=== PATIENT | female | born 1985 | race Caucasian/White ===

== ENCOUNTER 2016-11-26 | Emergency (ER) | payer OTHER ==
--- NOTE | 2016-11-26 18:21 | ED ---
General Adult HPI - General Chief complaint: Skin/Abscess/Foreign Body Stated complaint: rash Time Seen by Provider: 11/26/16 18:16 Source: patient, RN notes reviewed Mode of arrival: ambulatory Limitations: no limitations - History of Present Illness Initial comments: This is a 31-year-old female presents with rash to the chest, left shoulders and bilateral hands 1 week. Patient states she was treated with week ago with permethrin cream for scabies. Patient states the rash is not gone. Patient states the itching is worse at night. Patient denies any fever/chills, nausea/ vomiting/diarrhea. Patient states she lives at home with her children and they have also been treated. Patient denies any recent fever, chills, shortness breath, chest pain, abdominal pain, nausea/vomiting/diarrhea, back pain, numbness, tingling, hematuria, headache, or visual changes, or any other complaints. - Related Data Previous Rx's Medication Instructions Recorded Permethrin 5% Cream [Elimite] 1 applic TOPICAL ONCE #1 bottle 11/26/16 Allergies Allergy/AdvReac Type Severity Reaction Status Date / Time No Known Allergies Allergy Verified 11/26/16 18:20 Review of Systems ROS Statement: Those systems with pertinent positive or pertinent negative responses have been documented in the HPI. ROS Other: All systems not noted in ROS Statement are negative. Past Medical History Past Medical History: No Reported History Additional Past Medical History / Comment(s): PANCREATITIS History of Any Multi-Drug Resistant Organisms: None Reported Past Surgical History: Cholecystectomy, Tubal Ligation Past Psychological History: Anxiety Smoking Status: Current every day smoker Past Alcohol Use History: None Reported Past Drug Use History: None Reported General Exam - General Exam Comments Initial Comments: General: The patient is awake and alert, in no distress, and does not appear acutely ill. Neck: The neck is supple, there is no tenderness or JVD. Cardiovascular: There is a regular rate and rhythm. No murmur, rub or gallop is appreciated. Respiratory: Lungs are clear to auscultation, respirations are non-labored, breath sounds are equal. No wheezes, stridor, rales, or rhonchi. Musculoskeletal: Normal ROM, no tenderness. Strength 5/5. Sensation intact. Pulses equal bilaterally 2+. Neurological: A&O x 3. CN II-XII intact, There are no obvious motor or sensory deficits. Coordination appears grossly intact. Speech is normal. Skin: There are scattered erythematous lesions with eschar to the left shoulder , chest and bilateral hands consistent with scabies. These areas are pruritic. Skin is warm and dry. Psychiatric: Cooperative, appropriate mood & affect, normal judgment. Limitations: no limitations Course Vital Signs 11/26/16 17:48 Temperature 97.2 F L Pulse Rate 60 Respiratory 18 Rate Blood Pressure 100/71 O2 Sat by Pulse 99 Oximetry Medical Decision Making - Medical Decision Making This is a 31-year-old female who presents with persistent rash. Patient was treated for scabies one week ago. On physical exam there are scattered erythematous lesions with eschar to the left shoulder, chest and bilateral hands consistent with scabies. These areas are pruritic. Skin is warm and dry. I discussed with patient that she will receive a prescription for a repeat treatment with permethrin. I discussed proper use of permethrin and importance of washing clothes and bedding in hot water daily. I discussed return parameters. Discussed that patient should follow up with PCP in one to 2 days or return to the [facility] for any worsening symptoms or for any further concerns. Patient was receptive to this plan and patient will be discharged home. Disposition Clinical Impression: Scabies Disposition: HOME SELF-CARE Condition: Good Instructions: Scabies (ED) Additional Instructions: Apply from head to toe and leave on for 8-14 hours. Wash off in the shower. Repeat the process in 7 days. Please wash sheets and clothing in hot water every day.Please use medication as discussed. Please follow-up with family doctor in the next 2 days of symptoms have not improved. Please return to emergency room if the symptoms increase or worsen or for any other concerns. Prescriptions: Permethrin 5% Cream [Elimite] 1 applic TOPICAL ONCE #1 bottle Referrals: None,Stated [Primary Care Provider] - 1-2 days Time of Disposition: 18:25
== END 2016-11-26 18:30 | disposition home or self-care (01) ==
CPT/HCPCS: 99282

== ENCOUNTER 2018-03-04 09:39 | Emergency (ER) | payer OTHER ==
--- NOTE | 2018-03-04 10:20 | XR ---
EXAMINATION TYPE: XR lumbar spine 2 or 3V DATE OF EXAM: 03/04/2018 COMPARISON: NONE HISTORY: 32-year-old female low back pain TECHNIQUE: 3 views FINDINGS: 5 lumbar type vertebral bodies. There may be very mild disc space narrowing at L5-S1. Vertebral body heights are maintained and alignment is preserved. IMPRESSION: There may be early degenerative disc disease at L5-S1. No vertebral compression collapse or malalignm ent.
--- NOTE | 2018-03-04 10:29 | ED ---
General Adult HPI - General Chief complaint: Back Pain/Injury Stated complaint: Back pain Time Seen by Provider: 03/04/18 09:45 Source: patient, RN notes reviewed Mode of arrival: ambulatory Limitations: no limitations - History of Present Illness Initial comments: Patient 32-year-old female presented to the emergency room today with a chief complaint of increased lower back pain that began approximately 30 minutes ago. She states she was at work pushing a bed when she felt a pop in the lower back. She states she feels it radiate down to the top of her foot. Patient states it's worse with movements. States worse with ambulation. States worse when she is bearing weight on either leg. Patient denies bowel or bladder incontinence retention. Denies any saddle anesthesia. Patient states she has not taken anything for the pain. Patient denies any recent fever, chills, shortness of breath, chest pain, abdominal pain, nausea or vomiting, dysuria or hematuria, constipation or diarrhea, headaches or visual changes, or any other complaints. - Related Data Previous Rx's Medication Instructions Recorded Cyclobenzaprine [Flexeril] 10 mg PO TID #20 tab 03/04/18 Ibuprofen [Motrin] 600 mg PO Q6HR PRN #40 day 03/04/18 Allergies Allergy/AdvReac Type Severity Reaction Status Date / Time No Known Allergies Allergy Verified 03/04/18 09:46 Review of Systems ROS Statement: Those systems with pertinent positive or pertinent negative responses have been documented in the HPI. ROS Other: All systems not noted in ROS Statement are negative. Past Medical History Past Medical History: No Reported History Additional Past Medical History / Comment(s): PANCREATITIS History of Any Multi-Drug Resistant Organisms: None Reported Past Surgical History: Cholecystectomy, Tubal Ligation Past Psychological History: Anxiety Smoking Status: Former smoker Past Alcohol Use History: None Reported Past Drug Use History: None Reported General Exam Limitations: no limitations Course Vital Signs 03/04/18 09:42 Temperature 98.0 F Pulse Rate 85 Respiratory 20 Rate Blood Pressure 114/67 O2 Sat by Pulse 98 Oximetry Medical Decision Making - Medical Decision Making Patient's x-ray reviewed does show some degenerative changes at L5-S1. No other acute abnormalities X-rays. Results were discussed with patient. Patient did not want any medications here the emergency room. She is agreeable for prescription of ibuprofen and muscle relaxant. Patient advised that muscle relaxer may make her drowsy. Patient is advised follow-up with employee health. Patient advised to use heat to the area. Advised to return if symptoms increase or worsen or for any other concerns. Disposition Clinical Impression: Acute low back pain Disposition: HOME SELF-CARE Condition: Good Instructions: Acute Low Back Pain (ED) Additional Instructions: Please use medication as discussed. Please follow-up with family doctor in the next 2 days of symptoms have not improved. Please return to emergency room if the symptoms increase or worsen or for any other concerns. Prescriptions: Cyclobenzaprine [Flexeril] 10 mg PO TID #20 tab Ibuprofen [Motrin] 600 mg PO Q6HR PRN #40 day PRN Reason: Pain Referrals: None,Stated [Primary Care Provider] - 1-2 days Time of Disposition: 10:36
[2018-03-04 10:45] VITALS: BP 122/72; PULSE 76; RESP 18; TEMP 98
== END 2018-03-04 10:45 | disposition home or self-care (01) ==
LOC: EC 09:39
DX: M54.5 Low back pain (principal); M47.897 Other spondylosis, lumbosacral region; Z87.891 Personal history of nicotine dependence
CPT/HCPCS: 72100; 99283

== ENCOUNTER 2018-07-21 15:30 | Emergency (ER) | payer SELFPAY ==
[2018-07-21 15:46] VITALS: BP 97/63; PULSE 79; RESP 18; TEMP 98.1
--- NOTE | 2018-07-21 16:20 | XR ---
EXAMINATION TYPE: XR foot complete LT DATE OF EXAM: 07/21/2018 CLINICAL HISTORY: pain TECHNIQUE: Frontal, lateral and oblique images of the left foot are obtained. COMPARISON: None. FINDINGS: There is no acute fracture/dislocation evident. The joint spaces appear within normal reeves its. The overlying soft tissue appears unremarkable. IMPRESSION: There is no acute fracture or dislocation. ICD 10 NO FRACTURE, INITIAL EVALUATION
--- NOTE | 2018-07-21 16:36 | ED ---
Lower Extremity Injury HPI - General Chief Complaint: Extremity Injury, Lower Stated Complaint: Foot Pain Time Seen by Provider: 07/21/18 16:21 Source: patient Mode of arrival: ambulatory Limitations: no limitations - History of Present Illness Initial Comments: This a 33-year-old female with no past medical history who presents today for chief complaint of left foot pain. Patient states that 3 days ago she stepped on a toy that was covered by laundry. She merely noticed pain in the bottom of her foot. Patient went to work the next day, watch left foot. Following that a patient noticed increasing pain at the area where she made contact with the patient denies any lacerations, abrasions - Related Data Previous Rx's Medication Instructions Recorded Cyclobenzaprine [Flexeril] 10 mg PO TID #20 tab 03/04/18 Ibuprofen [Motrin] 600 mg PO Q6HR PRN #40 day 03/04/18 Acetaminophen Tab [Tylenol Tab] 500 mg PO Q6H PRN 7 Days #28 tablet 07/21/18 Ibuprofen [Motrin] 800 mg PO Q8H PRN 7 Days #21 tab 07/21/18 Allergies Allergy/AdvReac Type Severity Reaction Status Date / Time No Known Allergies Allergy Verified 07/21/18 15:46 Review of Systems ROS Statement: Those systems with pertinent positive or pertinent negative responses have been documented in the HPI. ROS Other: All systems not noted in ROS Statement are negative. Past Medical History Past Medical History: No Reported History Additional Past Medical History / Comment(s): PANCREATITIS History of Any Multi-Drug Resistant Organisms: None Reported Past Surgical History: Cholecystectomy, Tubal Ligation Past Psychological History: Anxiety Smoking Status: Former smoker Past Alcohol Use History: None Reported Past Drug Use History: None Reported General Exam Limitations: no limitations Course Vital Signs 07/21/18 07/21/18 15:42 17:12 Temperature 98.1 F 98.1 F Pulse Rate 79 79 Respiratory 18 18 Rate Blood Pressure 97/63 97/63 O2 Sat by Pulse 98 98 Oximetry Medical Decision Making - Medical Decision Making XR of the foot obtained revealing no acute fracture or FB. There is no laceration or abrasion to area of contact,no puncture or ecchymosis. Pt denied bleeding following the injury. I feel pt has a contusion of foot from stepping on a toy. Given onset after injury and areas of tenderness of palpation on exam I do not feel pt has plantar fasciitis. Pt was given RICE instructions and instructed to use NSAIDS for pain mgmt, in addition to f/u with PCP in 1-2 days. Pt agreed with plan and was d/c in stable condition. Case discussed with Dr. Fields in detail pt d/ russ stable condition. Disposition Clinical Impression: Left foot pain Disposition: HOME SELF-CARE Condition: Good Instructions: Foot Sprain (ED) Additional Instructions: Please use medication as discussed. Please follow-up with family doctor in the next 2 days of symptoms have not improved. Please return to emergency room if the symptoms increase or worsen or for any other concerns, as discussed. Prescriptions: Acetaminophen Tab [Tylenol Tab] 500 mg PO Q6H PRN 7 Days #28 tablet PRN Reason: Pain Ibuprofen [Motrin] 800 mg PO Q8H PRN 7 Days #21 tab PRN Reason: Pain Is patient prescribed a controlled substance at d/c from ED?: No Referrals: None,Stated [Primary Care Provider] - 1-2 days Time of Disposition: 16:44
== END 2018-07-21 17:12 | disposition home or self-care (01) ==
LOC: EC 15:30
DX: M79.672 Pain in left foot (principal); Z87.891 Personal history of nicotine dependence
CPT/HCPCS: 99283

== ENCOUNTER 2020-09-07 12:40 | Emergency (ER) | payer OTHER ==
[2020-09-07 13:00] VITALS: RESP 20
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
[2020-09-07] MEDS ORDERED: ACETAMINOPHEN TAB 500 MG TAB PO STA (13:22)
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
[2020-09-07] MEDS ORDERED: MECLIZINE 12.5 MG TAB PO STA (14:53)
[2020-09-07 15:08] VITALS: BP 99/73; PULSE 77; TEMP 98.8
== END 2020-09-07 15:13 | disposition home or self-care (01) ==
LOC: EC 12:40
DX: S06.0X9A Concussion with loss of consciousness of unspecified duration, initial encounter (principal); H92.02 Otalgia, left ear; V49.40XA Driver injured in collision with unspecified motor vehicles in traffic accident, initial encounter; Y93.89 Activity, other specified; Y92.410 Unspecified street and highway as the place of occurrence of the external cause
CPT/HCPCS: 70450; 71046; 72125; 72128; 99284